=== PATIENT | female | born 1985 | race Caucasian/White ===

== ENCOUNTER 2023-01-05 16:22 | Inpatient (IN) | payer BC ==
[~2023-01-05 16:22] MED LIST: Bupivacaine 0.25% HCL 30 ML VIAL ONE; Lidocaine 2% PF 5 ML VIAL ONE; ePHEDrine Sulfate 50 MG/10 ML VIAL ONE
[2023-01-05] MEDS ORDERED: hydrALAZINE 20 MG/ML VIAL SLOW IVP PRN ×2 (17:36→19:32)
[2023-01-05 17:48] VITALS: BMI 34.9
[2023-01-05 18:29] LABS: #Monocytes 0.4 10x3/uL (0.0-1.1); #Neutrophils 4.2 10x3/uL (1.5-8.4); %Basophils 0.5 % (0.0-2.0); %Eosinophils 0.7 % (0.0-6.0); %Lymphocytes 22.1 % (18.0-47.0); %Monocytes 6.3 % (0.0-10.0); %Neutrophils 70.2 % (40.0-75.0); Hemoglobin 9.2 g/dL (12.0-15.5); Mean Corpuscular HGB CONC 30.2 g/dL (32.0-36.0); Mean Corpuscular Hemoglobin 25.2 pg (27.0-33.0); Mean Corpuscular Volume 83.6 fl (81.6-98.3); Mean Platelet Volume 9.8 fl (7.4-10.4); Platelet Count 268 10x3/uL (150-450); RBC Distribution Width 16.3 % (11.5-14.5); Red Blood Cell (RBC) Count 3.65 10x6/uL (3.90-5.03)
[2023-01-05 18:41] LABS: Creatinine, Urine Less than 20.00 mg/dL (47-110); Protein, Urine Random Quant Less than 10 mg/dL (1-14)
[2023-01-05 18:42] LABS: ALT (SGPT) 13 U/L (8-55); AST (SGOT) 20 U/L (5-34); Albumin 3.3 g/dL (3.5-5.0); Alkaline Phosphatase 106 U/L (40-110); Anion Gap 15 mmol/L (10-20); BUN (Urea Nitrogen) 6 mg/dL (7.0-18.7); Bilirubin, Total 0.3 mg/dL (0.2-1.2); Calc. Creatinine Clearance 197 mL/min (70-130); Calcium 9.5 mg/dL (7.8-10.44); Carbon Dioxide 20 mmol/L (22-29); Chloride 107 mmol/L (98-107); Estimated GFR 117; Globulin 3.2 g/dL (2.4-3.5); Glucose 69 mg/dL (70-105); Potassium 3.9 mmol/L (3.5-5.1); Protein, Total 6.5 g/dL (6.0-8.3); Sodium 138 mmol/L (136-145)
[2023-01-05] MEDS ORDERED: Magnesium Sulfate 20 gm/500 ml 20 GM/500 ML BAG ONE (19:16)
[2023-01-05] MEDS ORDERED: Acetaminophen 500 MG TAB PO PRN (19:32)
[2023-01-05] MEDS ORDERED: Calcium Gluc 4.6 MEQ/10 ML (100 MG/ML) SLOW IVP PRN (19:32)
[2023-01-05] MEDS ORDERED: Promethazine HCl 25 MG/ML VIAL IM PRN (19:32)
[2023-01-05] MEDS ORDERED: Carboprost 250 MCG/ML AMP IM PRN (19:32)
[2023-01-05] MEDS ORDERED: Ondansetron PF 4 MG/2 ML Vial IVP PRN (19:32)
[2023-01-05] MEDS ORDERED: Ibuprofen 800 MG TAB PO PRN (19:32)
[2023-01-05] MEDS ORDERED: Lorazepam 2 MG/ML VIAL SLOW IVP PRN (19:32)
[2023-01-05] MEDS ORDERED: Labetalol HCl 100 MG/20 ML VIAL SLOW IVP PRN (19:32)
[2023-01-05] MEDS ORDERED: Lidocaine 1% (PF) 30 ML VIAL SC PRN (19:32)
[2023-01-05] MEDS ORDERED: NS w/ Oxytocin 30 units 500 ML IV SCH ×2 (19:45)
[2023-01-05] MEDS ORDERED: Magnesium Sulfate 20 gm/500 ml 20 GM/500 ML BAG IVPB SCH (19:45)
[2023-01-05 21:10] LABS: SARS-CoV-2 NAA Rapid Test Not Detected (NotDetected)
[2023-01-05 21:46] LABS: Hemoglobin 8.9 g/dL (12.0-15.5); Mean Corpuscular HGB CONC 30.2 g/dL (32.0-36.0); Mean Corpuscular Hemoglobin 25.4 pg (27.0-33.0); Mean Corpuscular Volume 84.3 fl (81.6-98.3); Mean Platelet Volume 10.2 fl (7.4-10.4); Platelet Count 260 10x3/uL (150-450); RBC Distribution Width 16.3 % (11.5-14.5); White Blood Cell (WBC) Count 5.9 10x3/uL (3.5-10.5)
[2023-01-05 22:20] LABS: HBSAg Index 0.12 S/CO (0-0.99); Hep B Surf Ag Non-Reactive S/CO (NonReactive)
[2023-01-05 22:22] LABS: Syphilis Antibody Nonreactive (Nonreactive); Syphilis Antibody Index 0.05 S/CO (<1.00 Non-Reactive)
[2023-01-06] MEDS: Magnesium Sulfate 20 gm/500 ml 20 GM/500 ML BAG IVPB SCH ×2 (04:29→14:20)
[2023-01-06] MEDS: Lactated Ringer's 1,000 ML IV SCH ×4 (07:45→21:03)
[2023-01-06] MEDS ORDERED: Acetaminophen 500 MG TAB PO PRN (10:30)
[2023-01-06] MEDS: hydrALAZINE 20 MG/ML VIAL SLOW IVP PRN ×2 (11:04→17:56)
[2023-01-06] MEDS ORDERED: Fentanyl 2 mcg/Bup 0.1% Cadd 100 ML ONE ×2 (11:32→11:35)
[2023-01-06] MEDS ORDERED: Lidocaine 2% PF 100 mg/5 ml Syringe ONE (13:41)
[2023-01-06] MEDS ORDERED: Ondansetron PF 4 MG/2 ML Vial IVP PRN (14:13)
[2023-01-06] MEDS ORDERED: Promethazine HCl 25 MG/ML VIAL IM PRN (14:13)
[2023-01-06] MEDS ORDERED: Moisturizing Cream (Eucerin) 113 GM JAR TOP PRN (14:13)
[2023-01-06] MEDS ORDERED: diphenhydrAMINE 50 MG/ML VIAL IVP PRN (14:13)
[2023-01-06] MEDS ORDERED: Naloxone HCl 0.4 mg/ml Vial IVP PRN ×2 (14:13)
[2023-01-06] MEDS ORDERED: Lactated Ringer's 500 ML IV PRN (14:13)
[2023-01-06] MEDS ORDERED: Communication Order-Pharmacy FS SCH (14:15)
[2023-01-06] MEDS ORDERED: Fentanyl 2 mcg/Bupivacaine 0.1% Cassette 100 ML EPIDURAL SCH (14:15)
[2023-01-06] MEDS: ePHEDrine Sulfate 50 MG/10 ML VIAL SLOW IVP PRN ×4 (14:57→15:14)
[2023-01-06] MEDS ORDERED: Misoprostol 200 MCG TAB ONE (15:59)
[2023-01-06] MEDS ORDERED: NS w/ Oxytocin 30 units 500 ML ONE (15:59)
[2023-01-06] MEDS ORDERED: Carboprost 250 MCG/ML AMP ONE (16:00)
[2023-01-06] MEDS ORDERED: hydrALAZINE 20 MG/ML VIAL ONE (17:55)
[2023-01-06] MEDS ORDERED: Labetalol HCl 100 MG TAB PO SCH (18:00)
[2023-01-06] MEDS: Acetaminophen 325 MG TAB PO PRN (19:42)
[2023-01-06] MEDS ORDERED: Acetaminophen 325 MG TAB PO PRN (19:45)
[2023-01-07] MEDS: Magnesium Sulfate 20 gm/500 ml 20 GM/500 ML BAG IVPB SCH ×2 (00:24→10:28)
[2023-01-07] MEDS: Acetaminophen 325 MG TAB PO PRN ×4 (03:09→22:31)
[2023-01-07 04:27] LABS: #Monocytes 0.5 10x3/uL (0.0-1.1); #Neutrophils 7.2 10x3/uL (1.5-8.4); %Basophils 0.3 % (0.0-2.0); %Eosinophils 0.3 % (0.0-6.0); %Monocytes 5.7 % (0.0-10.0); %Neutrophils 80.3 % (40.0-75.0); Hemoglobin 9.1 g/dL (12.0-15.5); Mean Corpuscular HGB CONC 30.6 g/dL (32.0-36.0); Mean Corpuscular Hemoglobin 25.6 pg (27.0-33.0); Mean Corpuscular Volume 83.4 fl (81.6-98.3); Platelet Count 246 10x3/uL (150-450); RBC Distribution Width 16.5 % (11.5-14.5); Red Blood Cell (RBC) Count 3.56 10x6/uL (3.90-5.03)
[2023-01-07 04:44] LABS: ALT (SGPT) 12 U/L (8-55); AST (SGOT) 24 U/L (5-34); Albumin 2.9 g/dL (3.5-5.0); Alkaline Phosphatase 89 U/L (40-110); Anion Gap 12 mmol/L (10-20); BUN (Urea Nitrogen) 6 mg/dL (7.0-18.7); Bilirubin, Total 0.4 mg/dL (0.2-1.2); Calc. Creatinine Clearance 207 mL/min (70-130); Calcium 7.4 mg/dL (7.8-10.44); Carbon Dioxide 22 mmol/L (22-29); Chloride 104 mmol/L (98-107); Estimated GFR 118; Globulin 2.9 g/dL (2.4-3.5); Glucose 84 mg/dL (70-105); Potassium 4.1 mmol/L (3.5-5.1); Protein, Total 5.8 g/dL (6.0-8.3); Sodium 134 mmol/L (136-145)
[2023-01-07] MEDS: Labetalol HCl 100 MG TAB PO SCH ×2 (10:27→22:27)
[2023-01-08] MEDS: Labetalol HCl 100 MG TAB PO SCH (08:47)
[2023-01-08 12:49] VITALS: TEMP 98.4
[2023-01-08 16:54] VITALS: BP 133/65
== END 2023-01-08 18:20 | disposition home or self-care (01) | DRG 807 ==
LOC: CSHLD/OP 16:22 → CSHLD 20:48 → CSHPED 01-07 18:17
PROVIDERS: ADMIT Obstetrics & Gynecology; ATTEND Obstetrics & Gynecology
PROC: 10E0XZZ Delivery of Products of Conception, External Approach (ICD-10-PCS; principal; 2023-01-06)
DX: O14.14 Severe pre-eclampsia complicating childbirth (principal); Z37.0 Single live birth; Z20.822 Contact with and (suspected) exposure to COVID-19; Z3A.37 37 weeks gestation of pregnancy; O34.211 Maternal care for low transverse scar from previous cesarean delivery; Z79.899 Other long term (current) drug therapy; E05.00 Thyrotoxicosis with diffuse goiter without thyrotoxic crisis or storm; E03.9 Hypothyroidism, unspecified; O99.284 Endocrine, nutritional and metabolic diseases complicating childbirth; Z79.890 Hormone replacement therapy; O99.844 Bariatric surgery status complicating childbirth; Z88.6 Allergy status to analgesic agent; O71.82 Other specified trauma to perineum and vulva; O70.0 First degree perineal laceration during delivery
CPT/HCPCS: 36415; 51702; 80053; 82570; 84156; 85025; 86780; 86850; 86900; 86901; 87340; 99285; J0360; J2001; J2590; J3475; J7120; S0020; U0002